=== PATIENT | female | born 1990 | race Caucasian/White ===

== ENCOUNTER 2019-11-20 | Emergency (ER) | payer BC ==
[~2019-11-20] VITALS: Ht 162.6 cm; Wt 100.0 kg
[2019-11-20 00:19] LABS: COLLECTION METHOD CLEAN CATCH
[2019-11-20 00:25] LABS: MUCOUS Present /lpf; PH 5 (5-8); URINE APPEARANCE Hazy; URINE BACTERIA Rare /hpf; URINE BILIRUBIN Negative (NEGATIVE); URINE BLOOD 3+ (NEGATIVE); URINE COLOR Yellow; URINE GLUCOSE Negative (NEGATIVE); URINE KETONE Negative (NEGATIVE); URINE LEUKOCYTE ESTERASE 2+ (NEGATIVE); URINE NITRATE Negative (NEGATIVE); URINE PROTEIN(semi-quant) 1+ (NEGATIVE); URINE RBC >50 /hpf; URINE UROBILINOGEN Negative (NEGATIVE)
[2019-11-20 00:39] LABS: BASO % 0.1 % (0.0-2.0); EOS # 0.3 (0.0-0.7); EOS % 2.6 % (0-4.0); GRAN # 6.1 (1.4-6.5); GRAN % 61.6 % (42.2-75.2); HEMATOCRIT 40.7 % (37.0-47.0); HEMOGLOBIN 13.8 g/dl (12.5-16.0); LYMPH % 30.8 % (20.0-51.0); MEAN CELL VOLUME 86 fl (80.0-100.0); MEAN CORPUSCULAR HEMOGLOBIN 29 pg (27.0-31.0); MEAN CORPUSCULAR HGB CONC 34 g/dl (33.0-37.0); MEAN PLATELET VOLUME 9.9 fl (7.4-10.4); MONO # 0.5 (0.1-0.6); MONO % 4.8 % (1.7-9.3); PLATELET COUNT 262 K/mm3 (130-400); RED BLOOD COUNT 4.76 M/mm3 (4.10-5.30); REDCELL DISTRIBUTION WIDTH-CV 11.6 % (11.5-14.5)
[2019-11-20 00:50] LABS: ALANINE AMINOTRANSFERASE 26 U/L (4-34); ALBUMIN 4.4 gm/dL (3.5-5.0); ALKALINE PHOSPHATASE 109 U/L (50-136); ANION GAP 8 mmol/L (7-16); AST,SGOT 28 U/L (15-37); BILIRUBIN,TOTAL 0.4 mg/dL (0.0-1.0); BLOOD UREA NITROGEN 15 mg/dL (7-17); CALCIUM 9.5 mg/dL (8.4-10.2); CARBON DIOXIDE 28 mmol/L (22-30); CHLORIDE 102 mmol/L (98-107); CREATININE, serum 0.92 (0.52-1.25); GLUCOSE 154 mg/dL (74-106); POTASSIUM 3.9 mmol/L (3.4-5.0); SODIUM 138 mmol/L (137-145); TOTAL PROTEIN 8.1 gm/dL (6.4-8.2)
[2019-11-20 01:17] LABS: HCG,QUANTITATIVE < 2 mIU/mL (0-5)
[2019-11-20] MEDS ORDERED: NORVASC 5MG5 MG/TAB PO (02:03)
[2019-11-20] MEDS ORDERED: CIPRO 500MG TA500 MG PO (02:03)
[2019-11-20 02:15] VITALS: BP 129/108; PULSE 102; TEMP 98.2
== END 2019-11-20 02:19 | disposition home or self-care (01) ==
LOC: COL.ER
PROVIDERS: Emergency Medicine
DX: N39.0 Urinary tract infection, site not specified (principal); I10 Essential (primary) hypertension; N72 Inflammatory disease of cervix uteri; Z32.02 Encounter for pregnancy test, result negative
CPT/HCPCS: J0696; J7030